=== PATIENT | female | born 1965 | race Caucasian/White ===

== ENCOUNTER 2024-11-20 07:58 | Emergency (ER) | payer OTHER ==
[~2024-11-20] VITALS: Ht 152.4 cm; Wt 74.0 kg
[2024-11-20 08:13] VITALS: O2SAT 100
[2024-11-20 08:30] VITALS: TEMP 36.9
[2024-11-20 08:39] LABS: BASOPHILS % 0.4 % (0.0-2.0); EOSINOPHILS % 0.2 % (0.0-5.0); HEMATOCRIT. 40.3 % (36.0-48.0); HEMOGLOBIN. 13.9 g/dL (12.0-16.0); LYMPHOCYTES % 10.8 % (20.0-50.0); MEAN CORPUSCULAR HEMOGLOBIN 31.7 pg (28.0-32.0); MEAN CORPUSCULAR HGB CONC 34.6 g/dL (31.0-37.0); MEAN CORPUSCULAR VOLUME 91.6 fL (81.0-99.0); MEAN PLATELET VOLUME 7.7 fl (7.4-10.4); MONOCYTES % 6.8 % (2.0-8.0); NEUTROPHILS % 81.8 % (40.0-76.0); PLATELET 185 x1000/uL (130-400); RED CELL DISTRIBUTION WIDTH 13.6 % (11.6-14.6); WHITE BLOOD COUNT 6.8 x1000/uL (4.5-11.0)
[2024-11-20 08:46] LABS: CHLORIDE 106 mEq/L (98-107); SODIUM 135 mEq/L (136-145)
[2024-11-20 08:47] LABS: CARBON DIOXIDE 25 mEq/L (21-32)
[2024-11-20 08:48] LABS: CALCIUM 9.1 mg/dL (8.7-10.4)
[2024-11-20 08:52] LABS: CREATININE 0.9 mg/dL (0.6-1.0); GLUCOSE 134 mg/dL (70-105); UREA NITROGEN BLOOD 13 mg/dL (9-23)
[2024-11-20 09:07] LABS: ALANINE AMINOTRANSFERASE 18 IU/L (10-49); ALBUMIN 4.1 g/dL (3.2-4.8); ASPARTATE AMINOTRANSFERASE 24 IU/L (<34); BILIRUBIN DIRECT < 0.1 mg/dL (<=3.0); BILIRUBIN TOTAL 0.4 mg/dL (0.1-1.0); PROTEIN TOTAL 6.7 g/dL (6.0-8.3)
[2024-11-20] MEDS: SODIUM CHLORIDE 0.9% 1,000 ML IV ONE (09:33)
[2024-11-20] MEDS: MORPHINE SULFATE 4 MG/ML INJ (FOR IV/IM USE) IV ONE (09:52)
[2024-11-20] MEDS ORDERED: ACET-2708 MT (10:48)
[2024-11-20] MEDS ORDERED: CIPR-263 MT (10:48)
[2024-11-20] MEDS ORDERED: METR-167 MT (10:48)
[2024-11-20] MEDS: METRONIDAZOLE 500 MG PREMIX 100 ML IV NR (10:58)
[2024-11-20 11:24] VITALS: BP 99/57; PULSE 84; RESP 16; O2SAT 100
== END 2024-11-20 11:31 | disposition home or self-care (01) ==
LOC: ER 07:58
DX: K57.32 Diverticulitis of large intestine without perforation or abscess without bleeding (principal); M19.90 Unspecified osteoarthritis, unspecified site; Z98.890 Other specified postprocedural states; Z79.899 Other long term (current) drug therapy; Z88.2 Allergy status to sulfonamides
CPT/HCPCS: 99285; 74176; 96365; 96361; 96375; 80076; 80048; 83690; 85025; 36415; J3490; J2270; J7030